=== PATIENT | male | born 1965 | race Caucasian/White ===

== ENCOUNTER 2017-11-03 07:36 | Emergency (ER) | payer BC ==
[2017-11-03] MEDS ORDERED: cloNIDine HCL 0.2 MG TAB PO STA (08:23)
[2017-11-03] MEDS ORDERED: LIDOCAINE/EPINEPHR/TETRACAINE 5 ML BOTTLE TOPICAL ONE ×2 (08:23→08:24)
--- NOTE | 2017-11-03 08:27 | ED ---
General Adult HPI - General Chief complaint: ENT Stated complaint: Nosebleed Time Seen by Provider: 11/03/17 08:16 Source: patient, RN notes reviewed Mode of arrival: ambulatory Limitations: no limitations - History of Present Illness Initial comments: Patient 52-year-old male significant past medical history for hypertension, presented to the emergency room today with nosebleed off and on over the last 2 days. Patient states he was up moving around todaybegan bleeding. He states this happened for the past 2 days been able to stop at home. Patient does admit to history of hypertension states he's been off his medications for a few years. He states that he had a follow-up appointment but became upset because they increased his co-pay so he stopped going. Patient denies any other complaints or symptoms. Patient denies any recent fever, chills, shortness of breath, chest pain, back pain, abdominal pain, nausea or vomiting, numbness or tingling, headaches or visual changes, or any other complaints. - Related Data Previous Rx's Medication Instructions Recorded amLODIPine [Norvasc] 5 mg PO DAILY #30 tab 11/03/17 Allergies Allergy/AdvReac Type Severity Reaction Status Date / Time No Known Allergies Allergy Verified 11/03/17 07:55 Review of Systems ROS Statement: Those systems with pertinent positive or pertinent negative responses have been documented in the HPI. ROS Other: All systems not noted in ROS Statement are negative. Past Medical History Past Medical History: Hypertension History of Any Multi-Drug Resistant Organisms: None Reported Past Surgical History: Orthopedic Surgery Additional Past Surgical History / Comment(s): heel Past Psychological History: No Psychological Hx Reported Smoking Status: Current every day smoker Past Alcohol Use History: Daily Past Drug Use History: Marijuana General Exam - General Exam Comments Initial Comments: General: The patient is awake and alert, in no distress, and does not appear acutely ill. Eye: Pupils are equal, round and reactive to light, extra-ocular movements are intact. No nystagmus. There is normal conjunctiva bilaterally. No signs of icterus. Ears, nose, mouth and throat: There are moist mucous membranes and no oral lesions. Bright red blood in Both left and right nostril no active bleeding is seen. Posterior pharynx is clear. Neck: The neck is supple, there is no tenderness or JVD. Musculoskeletal: Normal ROM, no tenderness. Strength 5/5. Sensation intact. Pulses equal bilaterally 2+. Neurological: A&O x 3. CN II-XII intact, There are no obvious motor or sensory deficits. Coordination appears grossly intact. Speech is normal. Skin: Skin is warm and dry and no rashes or lesions are noted. Psychiatric: Cooperative, appropriate mood & affect, normal judgment. Limitations: no limitations Course Vital Signs 11/03/17 11/03/17 07:41 09:57 Temperature 97.9 F 97.9 F Pulse Rate 94 84 Respiratory 20 16 Rate Blood Pressure 197/114 O2 Sat by Pulse 99 98 Oximetry Procedures - Procedures Initial comment: Lidocaine, epinephrine, tetracaine solution was placed on cotton ball and placed both the left and right nostril and left in for approximately 30 minutes. It was removed there was no active bleeding. There is small area anteriorly on the left side of the septum was cauterized. Patient reexamined and observed for over half an hour and has had no rebleeding. Posterior pharynx clear. Medical Decision Making - Medical Decision Making Patient's had no repeat bleeding urine emergency room. Pressure has improved. Patient omits is not been taking his blood pressure medication. Will be given a prescription for his amlodipine 5 mg. Patient advised follow-up family physician also ENT if bleeding recurs. Advised return for any other concerns. Disposition Clinical Impression: Epistaxis, Hypertension Disposition: HOME SELF-CARE Condition: Good Instructions: Nosebleed (ED) Additional Instructions: Please follow-up with ENT if nosebleeds persist. Please follow-up with family doctor about elevated blood pressure and further prescriptions. If bleeding recurs at home please use nasal clamp for 20 minutes. Typically uncontrolled please return to the emergency room. Prescriptions: amLODIPine [Norvasc] 5 mg PO DAILY #30 tab Is patient prescribed a controlled substance at d/c from ED?: No Referrals: Richard Mullins MD [Primary Care Provider] - 1-2 days Joshua Perales MD [STAFF PHYSICIAN] - 1-2 days Time of Disposition: 10:23
[2017-11-03] MEDS ORDERED: SILVER NITRATE APPLICATOR 1 EACH STICK..EA. TOPICAL STA (09:17)
[2017-11-03 10:33] VITALS: BP 172/93; PULSE 81; RESP 18; TEMP 98.6
== END 2017-11-03 10:32 | disposition home or self-care (01) ==
LOC: EC 07:36
DX: R04.0 Epistaxis (principal); I10 Essential (primary) hypertension; F17.200 Nicotine dependence, unspecified, uncomplicated
CPT/HCPCS: 30901; 99283

== ENCOUNTER 2017-11-03 13:38 | Emergency (ER) | payer BC ==
[2017-11-03 13:56] VITALS: BP 142/78; PULSE 93; RESP 18; TEMP 98.3
[2017-11-03] MEDS ORDERED: LIDOCAINE/EPINEPHR/TETRACAINE 5 ML BOTTLE TOPICAL ONE (14:48)
--- NOTE | 2017-11-03 15:37 | ED ---
General Adult HPI - General Chief complaint: ENT Stated complaint: nose bleed-revisit Time Seen by Provider: 11/03/17 14:23 Source: patient, RN notes reviewed Mode of arrival: ambulatory Limitations: no limitations - History of Present Illness Initial comments: 52-year-old male presents to the emergency department for a chief complaint of nosebleed. Patient states the nosebleed started today. He was seen in the emergency department earlier. Bleeding was controlled with let solution. Patient was discharged home with a nose clamp. He was told to clamp the nose for 15 minutes before returning to the ER. However, patient did not do this. He came back to the ER and his nose stopped bleeding. Patient denies lightheadedness, shortness of breath, chest pain. Patient denies any cocaine use. Patient has no other complaints at this time including shortness of breath , chest pain, abdominal pain, nausea or vomiting, headache, or visual changes. - Related Data Previous Rx's Medication Instructions Recorded Oxymetazoline 0.05% Nasl [place] 2 spray EA NOSTRIL BID PRN #1 11/03/17 [Afrin 0.05% Nasal [place]] bottle amLODIPine [Norvasc] 5 mg PO DAILY #30 tab 11/03/17 Allergies Allergy/AdvReac Type Severity Reaction Status Date / Time No Known Allergies Allergy Verified 11/03/17 14:33 Review of Systems ROS Statement: Those systems with pertinent positive or pertinent negative responses have been documented in the HPI. ROS Other: All systems not noted in ROS Statement are negative. Past Medical History Past Medical History: Hypertension History of Any Multi-Drug Resistant Organisms: None Reported Past Surgical History: Orthopedic Surgery Additional Past Surgical History / Comment(s): heel Past Psychological History: No Psychological Hx Reported Smoking Status: Current every day smoker Past Alcohol Use History: Daily Past Drug Use History: Marijuana General Exam Limitations: no limitations General appearance: alert, in no apparent distress Head exam: Present: atraumatic, normocephalic, normal inspection Eye exam: Present: normal appearance, PERRL, EOMI. Absent: scleral icterus, conjunctival injection, periorbital swelling ENT exam: Present: normal exam, normal oropharynx (no blood in oropharynx at this time.), mucous membranes moist, other (no current bleeding from bilateral nares. No areas of cautery noted.) Neck exam: Present: normal inspection, full ROM. Absent: tenderness, meningismus, lymphadenopathy Respiratory exam: Present: normal lung sounds bilaterally. Absent: respiratory distress, wheezes, rales, rhonchi, stridor Cardiovascular Exam: Present: regular rate, normal rhythm, normal heart sounds. Absent: systolic murmur, diastolic murmur, rubs, gallop, clicks Course Vital Signs 11/03/17 13:54 Temperature 98.3 F Pulse Rate 93 Respiratory 18 Rate Blood Pressure 142/78 O2 Sat by Pulse 99 Oximetry Medical Decision Making - Medical Decision Making 52-year-old male presents to the emergency department for a chief complaint of nosebleed. Patient was seen earlier today and bleeding was controlled with let solution. Patient went home and bleeding reoccurred. He did not clamp his nose for 15 minutes before coming back in. On exam, bleeding has ceased. No blood in the oropharynx. No areas for cautery noted in the nares. Patient requested that solution again and was given this. I discussed with patient the option of packing. I did offer him to be packed today. Patient states he would rather try to go home with the clamp and use as directed this time. He states he agrees to come back again if bleeding does not stop after 15 minutes of using the clamp and Afrin spray. He will follow up with ENT. He'll also follow up with primary care. Disposition Clinical Impression: Epistaxis Disposition: HOME SELF-CARE Condition: Good Instructions: Nosebleed (ED) Additional Instructions: If bleeding reoccurs at home, please spray 2 sprays of Afrin spray into the bilateral nares. Use clamp on nose for 15 minutes. If bleeding does not cease after this, return to the emergency department. Otherwise follow-up with ENT. Follow-up with primary care in 1-2 days as well. Return if you have any worsening symptoms whatsoever. Prescriptions: Oxymetazoline 0.05% Nasl [place] [Afrin 0.05% Nasal [place]] 2 spray EA NOSTRIL BID PRN #1 bottle PRN Reason: Bleeding Is patient prescribed a controlled substance at d/c from ED?: No Referrals: Richard Mullins MD [Primary Care Provider] - 1-2 days Joshua Perales MD [STAFF PHYSICIAN] - 1-2 days Time of Disposition: 15:42
== END 2017-11-03 15:46 | disposition home or self-care (01) ==
LOC: EC 13:38
DX: R04.0 Epistaxis (principal); F17.200 Nicotine dependence, unspecified, uncomplicated
CPT/HCPCS: 99283

== ENCOUNTER 2017-11-07 09:13 | Emergency (ER) | payer BC ==
[2017-11-07 09:23] VITALS: RESP 18; TEMP 98.1
[2017-11-07] MEDS ORDERED: LIDOCAINE/EPINEPHR/TETRACAINE 5 ML BOTTLE TOPICAL ONE (09:29)
--- NOTE | 2017-11-07 09:31 | ED ---
General Adult HPI - General Chief complaint: ENT Stated complaint: epistaxis recheck Time Seen by Provider: 11/07/17 09:24 Source: patient, RN notes reviewed Mode of arrival: ambulatory Limitations: no limitations - History of Present Illness Initial comments: Patient 52-year-old male presented to the emergency room today with a chief complaint of epistaxis. He isn't that he's had nosebleeds off and on over the last week. He states is usually able to stop them at home. He states he tried to call and follow up with ENT and he was advised come here to the emergency room. Patient states that bleeding seems to have stopped again. He states is very frustrated because bleeding keeps reoccurring. He does admit that he's been taking his blood pressure medication since it was prescribed to him again recently on one of his visits to the ER. Patient denies any other complaints or symptoms at this time. Patient denies any recent fever, chills, shortness of breath, chest pain, back pain, abdominal pain, nausea or vomiting, numbness or tingling, headaches or visual changes, or any other complaints. - Related Data Previous Rx's Medication Instructions Recorded Oxymetazoline 0.05% Nasl [place] 2 spray EA NOSTRIL BID PRN #1 11/03/17 [Afrin 0.05% Nasal [place]] bottle amLODIPine [Norvasc] 5 mg PO DAILY #30 tab 11/03/17 Allergies Allergy/AdvReac Type Severity Reaction Status Date / Time No Known Allergies Allergy Verified 11/07/17 09:32 Review of Systems ROS Statement: Those systems with pertinent positive or pertinent negative responses have been documented in the HPI. ROS Other: All systems not noted in ROS Statement are negative. Past Medical History Past Medical History: Hypertension History of Any Multi-Drug Resistant Organisms: None Reported Past Surgical History: Orthopedic Surgery Additional Past Surgical History / Comment(s): heel Past Psychological History: No Psychological Hx Reported Smoking Status: Current every day smoker Past Alcohol Use History: Daily Past Drug Use History: Marijuana General Exam - General Exam Comments Initial Comments: General: The patient is awake and alert, in no distress, and does not appear acutely ill. Eye: Pupils are equal, round and reactive to light, extra-ocular movements are intact. No nystagmus. There is normal conjunctiva bilaterally. No signs of icterus. Ears, nose, mouth and throat: There are moist mucous membranes and no oral lesions. No active bleeding coming from the left or right nostril. Posterior pharynx is clear. Previously cauterized area to the left side of the nasal septum is seeing no bleeding from the area. Neck: The neck is supple, there is no tenderness or JVD. Cardiovascular: There is a regular rate and rhythm. No murmur, rub or gallop is appreciated. Respiratory: Lungs are clear to auscultation, respirations are non-labored, breath sounds are equal. No wheezes, stridor, rales, or rhonchi. Musculoskeletal: Normal ROM, no tenderness. Strength 5/5. Sensation intact. Pulses equal bilaterally 2+. Neurological: A&O x 3. CN II-XII intact, There are no obvious motor or sensory deficits. Coordination appears grossly intact. Speech is normal. Skin: Skin is warm and dry and no rashes or lesions are noted. Psychiatric: Cooperative, appropriate mood & affect, normal judgment. Limitations: no limitations Course Vital Signs 11/07/17 09:20 Temperature 98.1 F Pulse Rate 93 Respiratory 18 Rate Blood Pressure 163/101 O2 Sat by Pulse 98 Oximetry Procedures - Procedures Initial comment: A lidocaine, epinephrine, tetracaine mixture placed into the left nostril for approximately 15 minutes. This was removed there was no active bleeding. Patient stating he wanted to be packed. Patient did have an 8 cm Merocel packing placed in the left nostril. Tolerated well. Disposition Clinical Impression: Epistaxis Disposition: HOME SELF-CARE Condition: Good Instructions: Nosebleed (ED) Additional Instructions: Please leave packing in place and follow-up with ENT over the next 2 days. Please return here to the emergency room for any symptoms increase worsen or for any other concerns. Is patient prescribed a controlled substance at d/c from ED?: No Referrals: Richard Mullins MD [Primary Care Provider] - 1-2 days Joshua Perales MD [STAFF PHYSICIAN] - 1-2 days Cosme Olson DO [Doctor of Osteopathic Medicine] - 1-2 days Time of Disposition: 09:55
[2017-11-07] MEDS ORDERED: OXYMETAZOLINE 0.05% NASL SPRAY 1 SPRAY BOTTLE NASAL STA (09:53)
[2017-11-07] MEDS ORDERED: cloNIDine HCL 0.1 MG TAB PO STA (10:22)
[2017-11-07 11:42] VITALS: BP 172/104; PULSE 75
== END 2017-11-07 11:42 | disposition home or self-care (01) ==
LOC: EC 09:13
DX: R04.0 Epistaxis (principal); I10 Essential (primary) hypertension; F17.200 Nicotine dependence, unspecified, uncomplicated
CPT/HCPCS: 30901; 99283

== ENCOUNTER 2017-11-08 05:22 | Emergency (ER) | payer BC ==
[2017-11-08 05:30] VITALS: TEMP 97.8
[2017-11-08] MEDS ORDERED: amLODIPine 5 MG TAB PO STA (05:47)
[2017-11-08] MEDS ORDERED: OXYMETAZOLINE 0.05% NASL SPRAY 1 SPRAY BOTTLE NASAL STA (06:06)
--- NOTE | 2017-11-08 06:06 | ED ---
ENT HPI - General Chief complaint: ENT Stated complaint: Epistaxis Time Seen by Provider: 11/08/17 05:56 Source: patient, RN notes reviewed Mode of arrival: ambulatory Limitations: no limitations - History of Present Illness Initial comments: 52-year-old male presents emergency Department chief complaint of epistaxis. Patient's had on-and-off bleeding over the last 4-5 days. Patient's had 3 prior ER visits to today. Patient had it packed family yesterday and has not started on Norvasc 5 mg. Patient states that he only was on Norvasc up until 2 years ago and stopped taking it. Patient states that even when he takes it does not believe his blood pressure comes down very much. Patient states she did take his Norvasc prior to coming here and blood pressure remains to be elevated. Patient reports no headache no dizziness. Patient has his left nare packed but states that he's had slight oozing on the right side but also some bleeding in his mouth. Patient states that he does have some discomfort from the packing the left side. - Related Data Previous Rx's Medication Instructions Recorded Oxymetazoline 0.05% Nasl [place] 2 spray EA NOSTRIL BID PRN #1 11/03/17 [Afrin 0.05% Nasal [place]] bottle amLODIPine [Norvasc] 5 mg PO DAILY #30 tab 11/03/17 Metoprolol Tartrate 25 mg PO BID #30 tab 11/08/17 amLODIPine [Norvasc] 10 mg PO DAILY #30 tablet 11/08/17 Allergies Allergy/AdvReac Type Severity Reaction Status Date / Time No Known Allergies Allergy Verified 11/08/17 07:18 Review of Systems ROS Statement: Those systems with pertinent positive or pertinent negative responses have been documented in the HPI. ROS Other: All systems not noted in ROS Statement are negative. Past Medical History Past Medical History: Hypertension History of Any Multi-Drug Resistant Organisms: None Reported Past Surgical History: Orthopedic Surgery Additional Past Surgical History / Comment(s): heel Past Psychological History: No Psychological Hx Reported Smoking Status: Current every day smoker Past Alcohol Use History: Daily Past Drug Use History: Marijuana General Exam Limitations: no limitations General appearance: alert, in no apparent distress Head exam: Present: atraumatic, normocephalic, normal inspection Eye exam: Present: normal appearance, PERRL, EOMI. Absent: scleral icterus, conjunctival injection, periorbital swelling ENT exam: Present: mucous membranes moist, TM's normal bilaterally, normal external ear exam, other (Packing noted in the left nostril, Merocele is bright red at this time). Absent: normal exam, normal oropharynx (Old blood noted in the posterior pharynx) Neck exam: Present: normal inspection, full ROM. Absent: tenderness, meningismus, lymphadenopathy Respiratory exam: Present: wheezes. Absent: normal lung sounds bilaterally, respiratory distress, rales, rhonchi, stridor Cardiovascular Exam: Present: regular rate, normal rhythm, normal heart sounds. Absent: systolic murmur, diastolic murmur, rubs, gallop, clicks Neurological exam: Present: alert Skin exam: Present: warm, dry, intact, normal color. Absent: rash Course Vital Signs 11/08/17 11/08/17 11/08/17 05:27 06:27 08:00 Temperature 97.8 F Pulse Rate 96 90 74 Respiratory 19 15 18 Rate Blood Pressure 161/97 148/99 160/102 O2 Sat by Pulse 99 99 99 Oximetry - Reevaluation(s) Reevaluation #1: 11/08/17 08:17 Patient has had no rebleeding at this time. Medical Decision Making - Medical Decision Making 52-year-old male presented for revisit of epistaxis. Patient blood pressure has been elevated which is most likely increase in his bleeding. Patient was given multiple medications in emergency from for his blood pressure and bleeding has subsided. Patient will follow-up with ENT and PCP. Disposition Clinical Impression: Epistaxis, Hypertension Disposition: HOME SELF-CARE Condition: Stable Instructions: Nosebleed (ED) Additional Instructions: Please return to the Emergency Department if symptoms worsen or any other concerns. Prescriptions: amLODIPine [Norvasc] 10 mg PO DAILY #30 tablet Metoprolol Tartrate 25 mg PO BID #30 tab Is patient prescribed a controlled substance at d/c from ED?: No Referrals: Richard Mullins MD [Primary Care Provider] - 1-2 days Cosme Olson DO [Doctor of Osteopathic Medicine] - 1-2 days Joshua Perales MD [STAFF PHYSICIAN] - 1-2 days Time of Disposition: 08:19
[2017-11-08] MEDS ORDERED: cloNIDine HCL 0.1 MG TAB PO STA (07:05)
[2017-11-08 08:01] VITALS: RESP 18
[2017-11-08] MEDS ORDERED: METOPROLOL TARTRATE 25 MG TAB PO STA (08:05)
[2017-11-08 08:30] VITALS: BP 183/97; PULSE 79
== END 2017-11-08 08:33 | disposition home or self-care (01) ==
LOC: EC 05:22
DX: I10 Essential (primary) hypertension (principal); R04.0 Epistaxis; F17.200 Nicotine dependence, unspecified, uncomplicated
CPT/HCPCS: 99283

== ENCOUNTER 2017-11-14 09:23 | Emergency (ER) | payer BC ==
[2017-11-14 09:27] VITALS: RESP 18; TEMP 98.2
--- NOTE | 2017-11-14 09:36 | ED ---
ENT HPI - General Chief complaint: ENT Stated complaint: Needs nose packing taken out Time Seen by Provider: 11/14/17 09:28 Source: patient, RN notes reviewed Mode of arrival: ambulatory Limitations: no limitations - History of Present Illness Initial comments: 52 year male presents emergency Department chief complaint of needing nasal packing removed. Patient had apparently 6 days ago emergency department and was placed simple pressure medications. Patient did follow-up with his PCP who told him that his blood pressure had been improved and that he needs follow-up with ENT. Patient states that he contacted Dr. Perales who stated they do not accept PCN he try to follow up with Dr. Olson in his office [facility] emergency department. Patient states she's not had any rebleeding states the packing has been white. He denies any fever, chills. Patient denies any current headache, dizziness, chest pain or shortness breath. - Related Data Previous Rx's Medication Instructions Recorded Oxymetazoline 0.05% Nasl [place] 2 spray EA NOSTRIL BID PRN #1 11/03/17 [Afrin 0.05% Nasal [place]] bottle amLODIPine [Norvasc] 5 mg PO DAILY #30 tab 11/03/17 Metoprolol Tartrate 25 mg PO BID #30 tab 11/08/17 amLODIPine [Norvasc] 10 mg PO DAILY #30 tablet 11/08/17 Allergies Allergy/AdvReac Type Severity Reaction Status Date / Time No Known Allergies Allergy Verified 11/14/17 09:27 Review of Systems ROS Statement: Those systems with pertinent positive or pertinent negative responses have been documented in the HPI. ROS Other: All systems not noted in ROS Statement are negative. Past Medical History Past Medical History: Hypertension History of Any Multi-Drug Resistant Organisms: None Reported Past Surgical History: Orthopedic Surgery Additional Past Surgical History / Comment(s): heel Past Psychological History: No Psychological Hx Reported Smoking Status: Current every day smoker Past Alcohol Use History: Daily Past Drug Use History: Marijuana General Exam Limitations: no limitations General appearance: alert, in no apparent distress Head exam: Present: atraumatic, normocephalic, normal inspection Eye exam: Present: normal appearance, PERRL, EOMI. Absent: scleral icterus, conjunctival injection, periorbital swelling ENT exam: Present: normal oropharynx, mucous membranes moist, TM's normal bilaterally, normal external ear exam. Absent: normal exam (Nasal packing in the left nostril) Neck exam: Present: normal inspection, full ROM. Absent: tenderness, meningismus, lymphadenopathy Respiratory exam: Present: normal lung sounds bilaterally. Absent: respiratory distress, wheezes, rales, rhonchi, stridor Cardiovascular Exam: Present: regular rate, normal rhythm, normal heart sounds. Absent: systolic murmur, diastolic murmur, rubs, gallop, clicks Course Vital Signs 11/14/17 09:24 Temperature 98.2 F Pulse Rate 74 Respiratory 18 Rate Blood Pressure 182/90 O2 Sat by Pulse 98 Oximetry Procedures - Procedures Initial comment: Nasal packing was removed from left nostril with no complications. There is no rebleeding there is no perforation of the nasal septum Disposition Clinical Impression: Encounter for removal of nasal packing, Hypertension Disposition: HOME SELF-CARE Condition: Stable Instructions: Nosebleed (ED) Additional Instructions: Please return to the Emergency Department if symptoms worsen or any other concerns. Is patient prescribed a controlled substance at d/c from ED?: No Referrals: Richard Mullins MD [Primary Care Provider] - 1-2 days Time of Disposition: 09:36
[2017-11-14 10:15] VITALS: BP 163/99; PULSE 75
== END 2017-11-14 10:14 | disposition home or self-care (01) ==
LOC: EC 09:23
DX: Z48.01 Encounter for change or removal of surgical wound dressing (principal); I10 Essential (primary) hypertension; F17.200 Nicotine dependence, unspecified, uncomplicated
CPT/HCPCS: 99281